=== PATIENT | female | born 1955 | race Asian ===

== ENCOUNTER 2018-09-23 02:17 | Emergency (ER) | payer BC ==
[~2018-09-23] VITALS: Ht 160 cm; Wt 90.7 kg
[2018-09-23] MEDS ORDERED: HYDR25TA60 PO (02:35)
[2018-09-23] MEDS ORDERED: PRINIVIL5 MG PO (02:35)
[2018-09-23 03:29] LABS: POTASSIUM 3.8 mmol/L (3.6-5.2); SODIUM 144 mmol/L (136-145)
[2018-09-23 03:36] LABS: PLATELET COUNT 157 K/uL (152-353)
[2018-09-23 04:11] VITALS: BP 158/82; TEMP 98.7
== END 2018-09-23 04:17 | disposition home or self-care (01) ==
LOC: ED 02:17
PROVIDERS: Family Medicine
DX: K21.9 Gastro-esophageal reflux disease without esophagitis (principal); R07.89 Other chest pain
CPT/HCPCS: 36415; 80053; 81000; 84484; 85027; 93005; 99283

== ENCOUNTER 2019-12-11 22:34 | Emergency (ER) | payer BC ==
[~2019-12-11] VITALS: Ht 160 cm; Wt 90.7 kg
[~2019-12-11 22:34] MED LIST: HYDR25TA60 PO; PRINIVIL5 MG PO
[2019-12-11 22:47] VITALS: TEMP 97.3
[2019-12-11 23:15] VITALS: BP 145/79
== END 2019-12-11 23:20 | disposition home or self-care (01) ==
LOC: ED 22:34
DX: H10.9 Unspecified conjunctivitis (principal)
CPT/HCPCS: 99283

== ENCOUNTER 2022-11-10 16:05 | Outpatient (CLI) | payer BC | END 2022-11-10 20:27 | disposition home or self-care (01) | LOC: RAD 16:05 | PROVIDERS: ATTEND Nurse Practitioner | DX: R05.3 Chronic cough (principal) ==

== ENCOUNTER 2022-12-30 10:57 | Outpatient (CLI) | payer OTHER | END 2022-12-30 19:21 | disposition home or self-care (01) | LOC: RAD 10:57 | PROVIDERS: ATTEND Internal Medicine | DX: R05.9 Cough, unspecified (principal); R09.81 Nasal congestion; R06.02 Shortness of breath ==

== ENCOUNTER 2023-05-11 09:23 | Observation (INO) | payer OTHER ==
[~2023-05-11] VITALS: Ht 160 cm; Wt 92.7 kg
[2023-05-11] VITALS (9 sets, daily range): BP systolic 146–178; BP diastolic 68–91; TEMP 97.8–98.4; Ht 160 cm; Wt 92.7 kg
[2023-05-11 09:59] LABS: PLATELET COUNT 161 K/uL (152-353)
[2023-05-11 10:13] LABS: POTASSIUM 3.6 mmol/L (3.6-5.2)
[2023-05-11] MEDS ORDERED: XARELTO20 MG PO (15:21)
[2023-05-11] MEDS ORDERED: MULTIVITAMIN1 TA1 PO (15:21)
[2023-05-11 16:36] LABS: PARTIAL THROMBOPLASTIN TIME 29.2 SECONDS (23.9-36.7)
[2023-05-12] VITALS: BP 115/59; TEMP 98.1
[2023-05-12 04:00] VITALS: BP 122/71; TEMP 98
[2023-05-12] MEDS ORDERED: PANTOPRAZOLE 40MG TA PO (10:19)
[2023-05-12] MEDS ORDERED: HYDR25TA57 PO (10:20)
== END 2023-05-12 13:15 | disposition home or self-care (01) ==
LOC: ED 09:23 → MED/SURG 11:57
PROVIDERS: Family Medicine; ADMIT Nurse Practitioner Family; ATTEND Internal Medicine
DX: R07.89 Other chest pain (principal); I16.0 Hypertensive urgency; Z86.711 Personal history of pulmonary embolism; Z79.01 Long term (current) use of anticoagulants; R06.02 Shortness of breath; R73.09 Other abnormal glucose; I10 Essential (primary) hypertension
CPT/HCPCS: 80053; 82550; 82948; 83880; 84484; 85027; 85610; 85730; 93005; 99221; 99284; G0378; Q9963

== ENCOUNTER 2023-07-18 15:00 | Emergency (ER) | payer OTHER ==
[~2023-07-18] VITALS: Ht 160 cm; Wt 91.6 kg
[~2023-07-18 15:00] MED LIST changes: +HYDR25TA57 PO; +MULTIVITAMIN1 TA1 PO; +PANTOPRAZOLE 40MG TA PO; +XARELTO20 MG PO
[2023-07-18 15:07] VITALS: TEMP 99.5
[2023-07-18 15:41] LABS: POTASSIUM 3.4 mmol/L (3.6-5.2)
[2023-07-18 15:46] LABS: PLATELET COUNT 188 K/uL (152-353)
[2023-07-18 17:00] VITALS: BP 128/68
== END 2023-07-18 17:11 | disposition home or self-care (01) ==
LOC: ED 15:00
PROVIDERS: Family Medicine
DX: R10.9 Unspecified abdominal pain (principal); K29.70 Gastritis, unspecified, without bleeding
CPT/HCPCS: 80053; 81002; 83690; 84484; 85027; 93005; 96374; 96375; 99284; J2405; Q9963